=== PATIENT | male | born 1945 | race Caucasian/White ===

== ENCOUNTER 2017-09-12 12:46 | Emergency (ER) | payer OTHER, MEDICARE ==
[~2017-09-12] VITALS: Ht 182.9 cm; Wt 83.0 kg
[2017-09-12 13:36] LABS: HEMATOCRIT 47.4 % (38.0-50.0); HEMOGLOBIN 16.7 G/DL (12.5-16.6); MCH 31.3 PG (29.0-34.0); MCHC 35.2 G/DL (30.0-36.0); MCV 88.9 FL (86-99); PLATELET COUNT 174 K/uL (156-360); RBC DIS.WIDTH-CV 12.6 % (11.8-14.6); RBC DIS.WIDTH-SD 41.3 % (39-53); RED BLOOD COUNT 5.33 M/uL (4.00-5.50); WHITE BLOOD COUNT 6.1 K/uL (4.1-10.2)
[2017-09-12 13:47] LABS: CHLORIDE 105 mEq/L (99-109); POTASSIUM 4.8 mEq/L (3.7-5.4); SODIUM 140 mEq/L (136-147)
[2017-09-12 13:49] LABS: GLUCOSE 108 mg/dL (70-99)
[2017-09-12 13:53] LABS: CREATININE 1.2 mg/dL (0.6-1.3); GFR ESTIMATE (CALCULATED) > 59 mL/min/ (58.99-99999)
[2017-09-12 13:54] LABS: UREA NITROGEN (BUN) 21 mg/dL (9-23)
[2017-09-12] MEDS ORDERED: KEFLEX500 MG PO (15:11)
[2017-09-12 15:46] VITALS: BP 148/73
== END 2017-09-12 15:51 | disposition home or self-care (01) ==
LOC: EME 12:46
PROVIDERS: Emergency Medicine Emergency Medical Services
DX: R55 Syncope and collapse (principal); R42 Dizziness and giddiness; S09.90XA Unspecified injury of head, initial encounter; R53.1 Weakness; J06.9 Acute upper respiratory infection, unspecified; J01.90 Acute sinusitis, unspecified; I67.82 Cerebral ischemia; W07.XXXA Fall from chair, initial encounter; Y92.531 Health care provider office as the place of occurrence of the external cause; E78.5 Hyperlipidemia, unspecified; L40.9 Psoriasis, unspecified; I25.2 Old myocardial infarction; Z95.1 Presence of aortocoronary bypass graft; Z87.891 Personal history of nicotine dependence
CPT/HCPCS: 70450; 80048; 85027; 93005; 99281; 99284